=== PATIENT | female | born 1970 | race African-American/Black ===

== ENCOUNTER 2021-03-05 20:16 | Emergency (ER) | payer OTHER ==
[~2021-03-05] VITALS: Ht 157.5 cm; Wt 79.4 kg
[2021-03-05] MEDS ORDERED: LEVO-T75 MCG PO (20:38)
[2021-03-05] MEDS ORDERED: PENICILLIN VK500 MG PO (21:25)
[2021-03-05] MEDS ORDERED: NORCO5 PO (21:25)
[2021-03-05 21:41] VITALS: BP 152/84
== END 2021-03-05 21:42 | disposition home or self-care (01) ==
LOC: ER 20:16
DX: K04.7 Periapical abscess without sinus (principal); E03.9 Hypothyroidism, unspecified; Z79.899 Other long term (current) drug therapy